=== PATIENT | male | born 1960 ===

== ENCOUNTER 2021-12-18 04:54 | Inpatient (IN) ==
[2021-12-18] MEDS ORDERED: niCARdipine HCL INJ 2.5 MG/ML 10 ML AMP ONE (04:59)
[2021-12-18] MEDS ORDERED: HEPARIN (PORCINE) 1000 UNIT/ML 10 ML (CATH LAB USE ONLY) ONE (04:59)
[2021-12-18] MEDS ORDERED: MIDAZOLAM HCL 1 MG/ML 2ML VIAL ONE (05:00)
[2021-12-18] MEDS ORDERED: NITROGLYCERIN/D5W 100MCG/ML 20ML SYR ONE (05:00)
[2021-12-18] MEDS ORDERED: fentaNYL citrate 100 MCG/2 ML VIAL ONE (05:00)
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
[2021-12-18] MEDS ORDERED: fentaNYL citrate 100 MCG/2 ML VIAL IV STA (05:02)
--- NOTE | 2021-12-18 05:18 | Pre Anesthesia Assessment ---
Date of Service December 18, 2021 Pre Sedation Assessment Vital Signs Temp Pulse Pulse Resp BP BP Pulse Ox 12/18/21 05:14 12/18/21 05:10 88 18 140/91 97 12/18/21 05:04 12/18/21 04:58 99 12/18/21 04:58 98.1 F 80 18 136/90 99 O2 Del Method 12/18/21 05:14 Room Air 12/18/21 05:10 12/18/21 05:04 Room Air 12/18/21 04:58 Room Air 12/18/21 04:58 Room Air Cardiovascular RRR, no murmur, no edema Respiratory normal respiratory effort, lungs clear to auscultation Pre-Sedation Airway Assessment Smoking Status: Current every day smoker Hx Sleep Apnea: No Hx Difficult Intubation: No Short, Thick Neck: No Oral Cavity: + WNL ASA: ASA4 Procedure Planning Contraindications for Sedation: none Current Medications Reviewed: Yes Notes The planned sedation has been discussed with the patient. Informed Consent was obtained. I have identified the patient, determined the appropriateness of sedation and have assessed the patient immediately prior to the procedure. All medicine(s) and interventions are by my order.
[2021-12-18] MEDS ORDERED: TICAGRELOR 90 MG TAB ONE (05:19)
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
[2021-12-18 05:22] LABS: Basophils # (auto) 0.09 K/uL (0-0.2); Basophils % (auto) 0.9 %; Eosinophils # (auto) 0.34 K/uL (0-0.50); Eosinophils % (auto) 3.3 %; Hematocrit (blood only) 41.9 % (40.1-51.0); Hemoglobin 13.9 g/dl (14.0-18.0); Immature Granulocytes # (auto) 0.04 K/uL (0.00-0.02); Immature Granulocytes % (auto) 0.4 %; Lymphocytes # (auto) 2.17 K/uL (1.2-3.4); Lymphocytes % (auto) 20.8 %; Mean Corpuscular Hemoglobin 30.2 pg (25.0-34.0); Mean Corpuscular Hgb Conc 33.2 g/dL (32.0-36.0); Mean Corpuscular Volume 90.9 fL (80.0-100.0); Mean Platelet Volume 9.1 fL (9.4-12.4); Monocytes # (auto) 0.98 K/uL (0.24-0.82); Monocytes % (auto) 9.4 %; Neutrophils # (auto) 6.83 K/uL (1.4-6.5); Neutrophils % (auto) 65.2 %; Platelet Count 329 K/uL (130-400); RDW Coefficient of Variation 12.9 % (11.5-14.5); RDW Standard Deviation 42.4 fL (36.4-46.3); Red Blood Count 4.61 M/uL (4.63-6.08); White Blood Count 10.45 K/ul (4.8-10.8)
[2021-12-18 05:34] LABS: INR 0.9 (0.9-1.1)
[2021-12-18 05:43] LABS: Albumin Globulin Ratio 1.4 (0.9-2); BUN Creatinine Ratio 22.9 (10-20); Bilirubin,Total 0.3 mg/dl (0.2-1.0); Calcium 8.7 mg/dl (8.5-10.1); Creatinine Clr Calc Pharmacy 99.3 ml/min; Est GFR (African American) 116.4 ml/min; Est GFR (Non-African American) 100.4 ml/min; Globulin 2.8 gm/dl (2.5-4.0); Potassium 3.8 mmol/L (3.5-5.1); Total Protein 6.8 gm/dl (6.0-8.3)
[2021-12-18] MEDS ORDERED: ICU PROTOCOL FOR HYPERGLYCEMIA PRN (06:30)
--- NOTE | 2021-12-18 06:30 | Post Anesthesia Assessment ---
Date of Service December 18, 2021 Post Sedation Assessment Vital Signs Temp Pulse Pulse Resp BP BP Pulse Ox 12/18/21 05:14 12/18/21 05:10 88 18 140/91 97 12/18/21 05:04 12/18/21 04:58 99 12/18/21 04:58 98.1 F 80 18 136/90 99 O2 Del Method 12/18/21 05:14 Room Air 12/18/21 05:10 12/18/21 05:04 Room Air 12/18/21 04:58 Room Air 12/18/21 04:58 Room Air Recovery Score Activity: Moves 4 extremities Respiration: Deep Breath/Cough Circulation: +/-20% PreAnes Value Consciousness: Fully Awake Oxygen Saturation: O2 needed for >90% Discharge Sedation Level of Care: Fast Track Phase II Post Sedation Plan On clinical assessment, the patient appears to have tolerated the sedation without complications. Patient is recovering as anticipated. Patient will continue to be monitored by nursing and may be discharged when sedation discharge criteria are met per below protocol. Upon Completions of procedure up to 15 minutes continue every 5 minute vital signs and the P.A.R. score; then discharge to a Phase I or Fast Track to Phase II per the following guidelines: * Discharge Patient to appropriate Phase II area if PAR is 8 or greater or retur n to pre- procedure baseline. The post - procedure orders will be as directed. * If PAR score is less than 8 or not return to pre-procedure baseline then patient will follow Phase I monitoring till PAR is reached for Phase II. The Phase I may be done in procedure room or may call to secure a Phase I area. * If naloxone or flumazenil are used for reversal, hold in Phase I for continued monitoring from when last reversal dose was given for a minimum of 60 minutes or longer pending the nurse and/or physician discretion of patient condition before discharge to Phase II. Please call the Sedation Physician to re-evaluate and complete post-note for discharge to Phase II area. Do NOT discharge from procedure sedation or Phase 1 until post- sedation evaluation note is complete by procedure /sedation MD Sedation Discharge Instructions to be given to the patient at discharge to home.
[2021-12-18] MEDS ORDERED: ACETAMINOPHEN 325 MG TAB PO PRN (06:33)
[2021-12-18] MEDS ORDERED: SODIUM CHLORIDE 0.9% 1000ML 1,000 ML IV SCH (06:45)
--- NOTE | 2021-12-18 06:46 | Cardiac Catheterization ---
[facility] Data: Fast Food Sales Assistant Cardiac Status Clinical evaluation leading to the procedure CAD Presenation: STEMI Anginal Classification: CCS IV Diagnostic Physicians Name: Jesus Zamarripa MD Closure Device Recommendations: PCI without planned CABG Cardiac Cath Procedure Full Procedure Date December 18, 2021 Pre-Procedure Diagnosis Pre-Procedure Diagnosis: STEMI AUC Score AUC Score: 9 Post-Procedure Diagnosis Post-Procedure Diagnosis: Severe CAD and Successful PCI Procedure(s) Performed Procedure(s) Performed: Coronary Angiography, Left Heart Cath and Drug Eluting Stent Social Problems Specialist Jesus Zamarripa MD Yarn Mercerizer Operator(s) [place] Estimated Blood Loss Estimated Blood Loss: 15 Medication(s) Medication(s): Fentanyl, Heparin, Lidocaine 1%, Nicardipine, Nitroglycerin and Versed Medication(s): Ticagrelor Summary of Findings Indication: STEMI/Heart Alert Access: 6 Fr right radial artery Catheters: Turn left 3.5 guide, pigtail Findings: LM -normal caliber, no significant disease LAD -medium caliber, calcified, 30 to 40% proximal disease. Mid segment angulated with 50 to 60% stenosis after D1. 40 to 50% latemid stenosis after D2. Distal vessel without significant disease and wraps around apex. Medium D2 without disease. Circumflex -medium caliber, gives off 1 large OM1. OM1 with 30% proximal/mid disease. RCA -dominant, large caliber, calcified, acute 100% mid occlusion upstream from prior stent. Faint [id number] collaterals to PDA/PLB. LVEDP -16 -- PCI -- Antithrombotic therapy: Heparin, ticagrelor Procedure: RCA cannulated with [place] left 3.5 guide Huc Ob 50 wire passed across lesion into distal vessel Due to calcification difficulty passing 2.5 balloon across stenosis With the aid of a GuideLiner able to predilate mid to distal vessel with 2.5 and 3.0 balloons After flow reestablished noticed to have a distal RCA stenosis/dissection. Distal RCA stented with 4.0 x 18 mm [place] extending back into mid segment in overlapping distal aspect of prior stent. Second KALEB (4.0 x 30 mm [place]) placed to mid RCA overlapping proximal aspect of old stent Stents post-dilated with 4.0 and 4.5 noncompliant balloons IC vasodilators administered for spasm Post procedure ASHLYN 3 flow, stents well expanded with minimal residual stenosis and no apparent cardiac complications. Arterial Closure: TR band Summary: 1. Inferolateral STEMI/100% mid RCA occlusion 2. Moderate non-culprit coronary artery disease -30% proximal, 60% mid LAD disease 30% OM1 3. Normal intracardiac filling pressure 4. Successful PCI of mid to distal RCA with 2 overlapping drug-eluting stents (4.0 x 30, 4.0 x 18 mm [place]; postdilated with 4.5 NC) extending across prior latemid RCA stent. Recommendations: Admit to ICU for continued monitoring Loaded with ticagrelor 180 mg in Fast Food Sales Assistant No aspirin with prior allergy. Continue extended ticagrelor/ADP antagonist indefinitely Trend troponins until peak, Check Echo Uptitrate beta-adolfo/ARB as BP allows High-dose statin Consult cardiac Rehab Hemodynamics Rest Ao:: 129/73/118 Final Ao: 113/71/90 LV: 110/16 Recommendations Recommendations: PCI without planned CABG Specimens Specimens: None Radiation Exposure (mGy) 2058 Contrast (mls) 60 Anesthesia Moderate 3048-3821 Procedural Complication(s) None Disposition ICU I attest to the content of the Intraoperative Record and any orders documented therein. Any exceptions are noted below. [facility] Card Cath Procedure Codes Cardiac Catheterization Procedure 1: Cardiovascular Cath Procedures: 96386 Coronaries and LHC (+/-LV) Moderate Sedation Procedure 1: Sedation/Anesthesia: 47354 Mod Sedation by the same physician;Init15 Min Child Age 5 & Up Procedure 2: Sedation/Anesthesia: 89229 Mod Sedation by the same physician; Ea [id number] Minutes Stenting Procedure 1: Cardiovascular Stent Procedures: 55780 Perc transluminal revascularization of acute sub/total occl, aMI PG Care Time/CCT Total # of Minutes Spent Total Time Spent with Patient: Total time spent is greater than 50% in coordination of care (as documented) at patient's floor/unit and/or counseling patient:
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
[2021-12-18] MEDS: LOSARTAN POTASSIUM 25 MG TAB PO SCH (08:03)
[2021-12-18] MEDS: PANTOprazole 40 MG TAB PO SCH (08:03)
[2021-12-18] MEDS: ROSUVASTATIN CALCIUM 20 MG TAB PO SCH (08:03)
[2021-12-18] MEDS: METOPROLOL TARTRATE 25 MG TAB PO SCH ×2 (08:03→20:24)
[2021-12-18 09:14] VITALS: TEMP 98.1
--- NOTE | 2021-12-18 10:19 | Billing Data ---
Date of Service December 18, 2021 Coding Level of Care Code 58020 Inpt Consult Level 3
--- NOTE | 2021-12-18 12:08 | XCELERA ---
[id number]
--- NOTE | 2021-12-18 17:48 | Electrocardiogram Report ---
Test Reason : Blood Pressure : / mmHG Vent. Rate : 075 BPM Atrial Rate : 075 BPM P-R Int : 180 ms QRS Dur : 084 ms QT Int : 378 ms P-R-T Axes : 042 070 098 degrees QTc Int : 422 ms Normal sinus rhythm with sinus arrhythmia ST elevation consider inferolateral injury or acute infarct ACUTE NV / STEMI Consider right ventricular involvement in acute inferior infarct Abnormal ECG No previous ECGs available Confirmed by Jesus Hicks ([id number]) on 12/18/2021 5:48:26 PM Referred By: REFERRED SELF Confirmed By:Cliff Hicks
--- NOTE | 2021-12-18 17:54 | Electrocardiogram Report ---
Test Reason : Blood Pressure : / mmHG Vent. Rate : 076 BPM Atrial Rate : 076 BPM P-R Int : 156 ms QRS Dur : 086 ms QT Int : 406 ms P-R-T Axes : 052 030 -10 degrees QTc Int : 456 ms Normal sinus rhythm Inferior infarct , possibly acute ACUTE NV / STEMI Consider right ventricular involvement in acute inferior infarct Abnormal ECG When compared with ECG of 18-DEC-2021 05:00, (unconfirmed) ST less elevated in Inferior leads ST no longer depressed in Anterolateral leads T wave inversion now evident in Inferior leads T wave inversion no longer evident in Anterolateral leads Confirmed by Jesus Hicks ([id number]) on 12/18/2021 5:53:54 PM Referred By: REFERRED SELF Confirmed By:Cliff Hicks
[2021-12-18] MEDS: TICAGRELOR 90 MG TAB PO SCH (20:24)
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
[2021-12-19 02:39] LABS: Basophils # (auto) 0.04 K/uL (0-0.2); Basophils % (auto) 0.3 %; Eosinophils % (auto) 1.7 %; Hematocrit (blood only) 36.9 % (40.1-51.0); Hemoglobin 12.3 g/dl (14.0-18.0); Immature Granulocytes # (auto) 0.03 K/uL (0.00-0.02); Immature Granulocytes % (auto) 0.3 %; Lymphocytes # (auto) 2.04 K/uL (1.2-3.4); Mean Corpuscular Hemoglobin 30.1 pg (25.0-34.0); Mean Corpuscular Hgb Conc 33.3 g/dL (32.0-36.0); Mean Corpuscular Volume 90.4 fL (80.0-100.0); Mean Platelet Volume 9.4 fL (9.4-12.4); Monocytes # (auto) 1.41 K/uL (0.24-0.82); Monocytes % (auto) 11.8 %; Neutrophils # (auto) 8.25 K/uL (1.4-6.5); Neutrophils % (auto) 68.9 %; Platelet Count 297 K/uL (130-400); RDW Coefficient of Variation 13.1 % (11.5-14.5); Red Blood Count 4.08 M/uL (4.63-6.08); White Blood Count 11.97 K/ul (4.8-10.8)
[2021-12-19 03:19] LABS: BUN Creatinine Ratio 22.1 (10-20); Calcium 8.5 mg/dl (8.5-10.1); Chol HDL Ratio 3.9 (0-5); Creatinine Clr Calc Pharmacy 80.8 ml/min; Est GFR (Non-African American) 92.3 ml/min; Potassium 3.7 mmol/L (3.5-5.1)
[2021-12-19 07:36] LABS: Estimated Average Glucose 117 mg/dl; Hemoglobin A1C 5.7 % (4.5-5.6)
[2021-12-19] MEDS: TICAGRELOR 90 MG TAB PO SCH ×2 (10:13→21:21)
[2021-12-19] MEDS: METOPROLOL TARTRATE 25 MG TAB PO SCH (10:14)
[2021-12-19] MEDS: ROSUVASTATIN CALCIUM 20 MG TAB PO SCH (10:14)
[2021-12-19] MEDS: PANTOprazole 40 MG TAB PO SCH (10:14)
[2021-12-19] MEDS: LOSARTAN POTASSIUM 25 MG TAB PO SCH (10:14)
--- NOTE | 2021-12-19 13:27 | Cardiology Progress Note ---
Date of Service December 19, 2021 Assessment & Plan (1) Coronary artery disease: Plan: Post primary PCI to occluded RCA with 2 KALEB 12/18/2021 Moderate residual nonculprit hbgdaok23% mid LAD, 30% OM1 2. Ischemic cardiomyopathyEF 40 to 45%, inferior/inferoseptal/inferolateral wall motion normality 3. Frequent ventricular ectopy 4. Hypertension 5. Dyslipidemiastatin induced myopathy 6. PADright popliteal occlusion with reconstitution of JILLIAN, prior attempted intervention vascular surgery 03/2020 7. Tobacco abuse 8. Aspirin allergy Chest pain-free, troponins peaked Hemodynamically stable No signs of heart failure on exam No access to complications Continues to have intermittent ventricular ectopy, nonsustained VT Recommend monitoring on telemetry 1 additional day in the setting of ventricular ectopy Increase metoprolol to 50 mg twice daily Continue single antiplatelet therapy with ticagrelor Continue home losartan Reports life limiting muscle/joint symptoms with multiple statins including rosuvastatinwe will switch to low-dose pravastatin, add Zetia. [facility] previously discussed PCSK9 [facility]. Recommend starting as an outpatient. Smoking cessation Assuming reduced ventricular ectopy overnight likely discharge tomorrow morning Follow-up with me in 2 weeks. Admission and Anticipated Discharge Date Admission Date: December 18, 2021 Subjective Feeling well today. Denies any recurrent chest pain since PCI yesterday. Denies shortness of breath. Reports muscle aches, cramping of his joints most notably in his hands with statin. Telemetry reviewedfrequent nonsustained VT, 1 40+ beat run overnight. Asymptomatic. Review of Systems Review of Systems: All systems reviewed & are unremarkable except as noted in HPI & below Physical Exam Physical Exam: General: Comfortable HEENT: Sclerae anicteric Lungs: Clear to auscultation bilaterally Cardiac: Regular rate and rhythm, no murmurs. Vascular: Right radial artery access site with no ecchymosis, hematoma. Distal pulse and sensation intact. Abdomen: Soft, nontender Extremities: Well perfused, no peripheral edema Neuro: Nonfocal Psych: Alert orient x3, normal affect and mood Results & Data ([facility]) Vital Signs (Past 12 Hours) Vital Signs Pulse Resp BP Pulse Ox 12/19/21 10:00 75 13 116/75 97 12/19/21 09:00 64 18 96 12/19/21 08:00 66 22 95 12/19/21 07:00 63 17 94 12/19/21 07:00 113/70 12/19/21 07:29 61 PG Care Time/CCT Total # of Minutes Spent Total Time Spent with Patient: Total time spent is greater than 50% in coordination of care (as documented) at patient's floor/unit and/or counseling patient: Coding Level of Care Code 47068 Subseq Hosp Care Lvl 3 Diagnoses Coronary artery disease I25.10
[2021-12-19] MEDS ORDERED: METOPROLOL TARTRATE 25 MG TAB PO ONE (13:29)
--- NOTE | 2021-12-19 16:59 | Hospitalist Progress Note ---
Date of Service December 19, 2021 Assessment & Plan (1) Acute UT, inferolateral wall: Plan: Status post cath and stenting, doing well (2) Coronary artery disease: Plan: Med management, secondary risk reduction. Lifestyle discussed in detail. Smoke cessation encouraged yet again. He is doing good in this regard. Discussed statin, discussed the skepticism about statins causing muscle aches, but also noted that if it truly was the statin causing this degree of aches, it would not be unreasonable to stop and try a different line of medications. That said, given that he is continuing to take the rosuvastatin even to this day, and he is fresh from a STEMI, it would probably make more sense for him to try cessation and follow side effects in a few months. If the aches get better, then a PCSK9 would make sense, if the aches of the same, then it would be clear that the statin was not culprit. (3) HTN (hypertension): Plan: Blood pressure remains acceptable given the situation (4) Hyperlipidemia: Plan: High intensity statinsee above (5) Tobacco abuse: Plan: Counseled extensively on cessation (6) DVT prophylaxis: Plan: Has had extensive heparin. Currently ambulation (7) Discharge planning issues: Plan: Monitor overnight, if no significant arrhythmias or new symptoms, hopefully home tomorrow. Admission and Anticipated Discharge Date Admission Date: December 18, 2021 Subjective Generally feeling well. No chest pain no shortness of breath. Looking forward to going home. In discussion of statinhe notes that he thinks rosuvastatin is causing shoulder and arm painbut at the same time notes he is continuing to take it. He notes before whenever he was off at the shoulder and arm pain was better. That said, he also seems to pay deference to the fact that he works a very physical job and it might be pain from that. Review of Systems Review of Systems: All systems reviewed & are unremarkable except as noted in HPI & below Physical Exam Physical Exam: In general he is awake and alert pleasant no distress. HEENT normocephalic atraumatic mucous membranes moist. Breathing unlabored no accessory muscle use good effort. Skin shows no rashes no pallor or icterus. Neuro without focal deficits. Left hand some joint hypertrophy and stiffness. Results & Data Results & Data ([facility]) Vital Signs (Past 12 Hours) Vital Signs Pulse Resp BP Pulse Ox 12/19/21 16:00 64 21 95 12/19/21 16:00 113/70 12/19/21 15:00 63 21 97 12/19/21 15:00 114/73 12/19/21 14:00 65 22 96 12/19/21 14:00 107/64 12/19/21 13:00 23 12/19/21 13:00 104/67 12/19/21 12:00 61 17 95 12/19/21 11:00 61 14 95 12/19/21 11:00 112/77 12/19/21 16:00 66 12/19/21 10:00 75 13 116/75 97 12/19/21 09:00 64 18 96 12/19/21 08:00 66 22 95 12/19/21 07:00 63 17 94 12/19/21 07:00 113/70 12/19/21 07:29 61 PG Care Time/CCT Total # of Minutes Spent Total Time Spent with Patient: Total time spent is greater than 50% in coordination of care (as documented) at patient's floor/unit and/or counseling patient: Coding Level of Care Code 35809 Subseq Hosp Care Lvl 3 Diagnoses Acute UT, inferolateral wall I21.19 Coronary artery disease I25.10 HTN (hypertension) I10 Hyperlipidemia E78.5 Tobacco abuse Z72.0 DVT prophylaxis Z29.9 Discharge planning issues Z02.9
[2021-12-19] MEDS: METOPROLOL TARTRATE 50 MG TAB PO SCH (21:21)
[2021-12-20 05:55] LABS: Basophils # (auto) 0.05 K/uL (0-0.2); Basophils % (auto) 0.5 %; Eosinophils # (auto) 0.22 K/uL (0-0.50); Hematocrit (blood only) 39.3 % (40.1-51.0); Hemoglobin 13.2 g/dl (14.0-18.0); Immature Granulocytes # (auto) 0.03 K/uL (0.00-0.02); Immature Granulocytes % (auto) 0.3 %; Lymphocytes # (auto) 2.17 K/uL (1.2-3.4); Mean Corpuscular Hemoglobin 30.3 pg (25.0-34.0); Mean Corpuscular Hgb Conc 33.6 g/dL (32.0-36.0); Mean Corpuscular Volume 90.1 fL (80.0-100.0); Mean Platelet Volume 9.8 fL (9.4-12.4); Monocytes # (auto) 1.33 K/uL (0.24-0.82); Monocytes % (auto) 12.3 %; Neutrophils # (auto) 7.05 K/uL (1.4-6.5); Neutrophils % (auto) 64.9 %; Platelet Count 292 K/uL (130-400); RDW Standard Deviation 42.9 fL (36.4-46.3); Red Blood Count 4.36 M/uL (4.63-6.08); White Blood Count 10.85 K/ul (4.8-10.8)
[2021-12-20 06:21] LABS: Calcium 8.9 mg/dl (8.5-10.1); Creatinine Clr Calc Pharmacy 92.7 ml/min; Est GFR (African American) 113.2 ml/min; Est GFR (Non-African American) 97.6 ml/min
[2021-12-20] MEDS: TICAGRELOR 90 MG TAB PO SCH (07:45)
[2021-12-20] MEDS: METOPROLOL TARTRATE 50 MG TAB PO SCH (07:46)
[2021-12-20] MEDS: PANTOprazole 40 MG TAB PO SCH (07:46)
[2021-12-20] MEDS: LOSARTAN POTASSIUM 25 MG TAB PO SCH (07:46)
[2021-12-20 08:58] VITALS: O2SAT 95
[2021-12-20] MEDS ORDERED: EZETIMIBE 10 MG TABLET PO SCH (09:00)
[2021-12-20 11:16] VITALS: BP 124/78; PULSE 86
--- NOTE | 2021-12-20 11:53 | Cardiology Progress Note ---
Date of Service December 20, 2021 Assessment & Plan (1) Coronary artery disease: Plan: Post primary PCI to occluded RCA with 2 KALEB 12/18/2021 Moderate residual nonculprit [id number]% mid LAD, 30% OM1 2. Ischemic cardiomyopathyEF 40 to 45%, inferior/inferoseptal/inferolateral wall motion normality 3. Frequent ventricular ectopy 4. Hypertension 5. Dyslipidemiastatin induced myopathy 6. PADright popliteal occlusion with reconstitution of JILLIAN, prior attempted intervention vascular surgery 03/2020 7. Tobacco abuse 8. Aspirin allergy Chest pain-free, troponins peaked Hemodynamically stable No signs of heart failure on exam No access to complications No additional significant ventricular ectopy overnight. Ok for discharge today. Home on Brilinta alone and current meds. PCSK9 as an outpatient with AL Smoking cessation Follow-up with me in 2 weeks. Admission and Anticipated Discharge Date Admission Date: December 18, 2021 Subjective feeling well. no chest pain. ready to go home. tele reviewed -- no events. Review of Systems Review of Systems: All systems reviewed & are unremarkable except as noted in HPI & below Physical Exam Physical Exam: General: Comfortable HEENT: Sclerae anicteric Lungs: Clear to auscultation bilaterally Cardiac: Regular rate and rhythm, no murmurs. Vascular: Right radial artery access site with no ecchymosis, hematoma. Distal pulse and sensation intact. Abdomen: Soft, nontender Extremities: Well perfused, no peripheral edema Neuro: Nonfocal Psych: Alert orient x3, normal affect and mood Results & Data ([facility]) Vital Signs (Past 12 Hours) Vital Signs Temp Pulse Pulse Resp BP BP Pulse Ox 12/20/21 11:13 98.1 F 86 17 124/78 95 12/20/21 08:50 65 17 95 12/20/21 08:40 65 20 95 12/20/21 08:30 70 22 95 12/20/21 08:20 63 20 95 12/20/21 08:10 65 16 96 12/20/21 08:00 70 19 93 12/20/21 07:50 70 22 93 12/20/21 07:45 71 19 94 12/20/21 07:45 108/71 12/20/21 07:40 70 22 95 12/20/21 07:30 72 25 H 93 12/20/21 07:20 72 19 93 12/20/21 07:10 65 16 94 12/20/21 07:00 65 14 94 12/20/21 07:00 117/78 12/20/21 06:50 62 21 93 12/20/21 06:40 58 L 17 94 12/20/21 06:30 59 L 19 94 12/20/21 06:20 69 17 96 12/20/21 06:10 60 17 92 12/20/21 06:00 62 19 95 12/20/21 06:00 117/73 12/20/21 05:50 60 20 93 12/20/21 05:40 61 21 90 12/20/21 05:30 62 18 94 12/20/21 05:20 69 16 97 12/20/21 05:10 62 27 H 94 12/20/21 08:00 61 12/20/21 05:00 64 16 93 12/20/21 05:00 107/73 12/20/21 04:00 59 L 17 95 12/20/21 04:00 111/71 12/20/21 03:00 59 L 15 94 12/20/21 03:00 112/70 12/20/21 02:00 57 L 17 94 12/20/21 02:00 103/70 12/20/21 01:00 65 15 94 12/20/21 01:00 114/66 12/20/21 00:00 59 L 17 93 12/20/21 00:00 100/63 PG Care Time/CCT Total # of Minutes Spent Total Time Spent with Patient: Total time spent is greater than 50% in coordination of care (as documented) at patient's floor/unit and/or counseling patient: Coding Level of Care Code 38642 Subseq Hosp Care Lvl 3 Diagnoses Coronary artery disease I25.10
--- NOTE | 2021-12-20 15:44 | Discharge Summary ---
Date of Service December 20, 2021 Admission HPI Per Admitting Provider Patient presented with chest painfound to have inferior STEMItaken promptly to cath and PCI. By the time I see him he is feeling good. No further chest pain no shortness of breath. 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 He does still smoke but is willing to at least consider quitting, knows that he should. Eating habits sound fairly typical for bessemer PAprobably a little devoid in fruits and vegetables a little high in saturated fats and simple carbs, but certainly nothing outlandish. Principal Diagnosis STEMI Discharge Exam In general he is awake and alert pleasant no distress. HEENT normocephalic atraumatic mucous membranes moist. Breathing unlabored no accessory muscle use good effort. Skin shows no rashes no pallor or icterus. Neuro without focal deficits. Discharge Data Allergies Allergy/AdvReac Type Severity Reaction Status Date / Time aspirin Allergy Severe Swelling Verified 04/03/21 09:29 of Lip/Tongue/Throat Bee Stings Allergy Severe Anaphylaxis Uncoded 04/03/21 09:29 Consultations 12/18/21 05:04 ED Decision to Admit Stat 12/18/21 06:30 Consult Workday Manager Routine Procedures Performed Operation Date: 12/18/21 05:10 Actual Procedures p Aspiration/PCI w/KALEB for Stemi - Marcelo Zamarripa MD Ordered Studies 12/18/21 05:06 CL Cath Imgs for PACS use only Stat Hospital Course (1) Acute [place], inferolateral wall: Status post cath and stenting, doing well, stable for home. (2) Coronary artery disease: Med management, secondary risk reduction. Lifestyle discussed in detail. Smoke cessation encouraged yet again. He is doing good in this regard. Discussed statin, discussed the skepticism about statins causing muscle aches, but also noted that if it truly was the statin causing this degree of aches, it would not be unreasonable to stop and try a different line of medications. By cardiology recommendations, changing his rosuvastatin to pravastatin. Discussed with patient to follow his muscle aches nowif they get better, then it would be clear that the rosuvastatin was culprit, but given his physical job and the high probability that he has muscle aches simply from the physical nature of his workif the aches are the same on the pravastatin as they were on the rosuvastatin, it likely was not the rosuvastatin at culprit, and it could be resumed. This of course leaves open the question of whether or not a trial off of all statins would be necessary if the aches do not get better. If the aches do get better off of statin, then a PCSK9 would make sense, and again, if the aches remain the same, then it would be clear that the statin was not culprit. (3) HTN (hypertension): Blood pressure remains acceptable given the situation (4) Hyperlipidemia: See above under coronary artery disease (5) Tobacco abuse: Counseled extensively on cessation, doing well thus far (6) DVT prophylaxis: Has had extensive heparin. Currently ambulation (7) Discharge planning issues: Stable for home, outpatient PCP and cardiology follow-up.. Total Time Total Time Spent Total Time Spent (In Minutes): <30 Discharge Plan Discharge Items Patient Disposition: Home - Self-Care Reason For Visit: STEMI Discharge Diagnosis: Heart attack Activity: Resume your previous activity Activity Comment: Take it easy until you are seen by cardiology and follow-up Non-emergency contact: Primary Care Provider and Weft Straightener Call non-emergency contact if: you have any medication questions and your symptoms worsen Follow-up/Referrals: PCP,NO [Primary Care Provider] - Diet: Heart Healthy Addtl Attending Provider Instructions: Heart attack -You had a fairly significant heart attack caused by blockage of your right coronary arteryfortunately this was able to be stented open to mitigate some of the damage. You do have some other blockages that are not nearly as significant, but that means it is critically important to work every angle (medications, diet/exercise, quitting smoking) to keep the situation totally stable and prevent the next heart attack -As far as lifestyle, moving towards as much of a Mediterranean diet as you can (heavy in fruits and vegetables, lean sources of protein such as chicken without the skin, pork, fish, and low in simple/starchy/bradycardia carbohydrates as well as saturated fats) will be very helpful. Once cardiology gives you the "greenlight" getting back to being as active as possible is very helpfulwith an ideal goal of 20 to 30 minutes of exercise a day that has your heart rate up. Lastly, quitting smoking is critically important. Remember you are now several days cigarette free and doing well. Like we discussed, everything else we are doing (medicines, diet, exercise) will be about as effective as trying to dry off while you are still in the swimming pool if you keep smoking. -As far as medications: We have started metoprolol which is a "beta-adolfo" medicationthink of this as a "cardiac muscle relaxant"it helps slow your heart rate down some and allow your heart muscle to relaxmeaning that it will need less demand of blood flow. Typically people tolerate this medicine quite well, some do feel fatigue/lightheaded/dizzy. 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 Either way it is unlikely, and most of the time even when it does happen if you give it a week or 2 it will improve. As far as the statin goeswe emphasized those so much because there are good outcomes in the studies showing that people with heart disease on a statin are significantly less likely to have another heart attack. That said, if you truly have almost disabling muscle and joint symptoms related to the rosuvastatin, that would not be acceptable. Dr. Zamarripa has recommended that we give a trial of pravastatin and Zetia. With this switch, if you notice your joint/muscle pain getting better over the next months (pay attention especially at the end of December and early January as the rosuvastatin would be wearing off if it was culprit), then we would know the rosuvastatin was a culpritand we would have you continue on the pravastatin and Zetia but also have your primary team continue to work on the injectable cholesterol medicinesbecause they have a better rate of preventing future heart attacks than a combination like pravastatin and Zetia would. If you notice no change in your muscle aches, then it is most likely the rosuvastatin was not culprit, and since it is a better medicine at preventing heart attacks than pravastatinI would recommend going back to it. "Getting into the weeds" you could entertain the idea that any statin is causing aches, and for the month of January be off of even the pravastatin, before deciding for sure whether or not the statin causes aches. We have you on Brilinta as an "antiplatelet" medicinewhen someone has a heart attack, the plaque in their coronary artery splits open. Our blood reacts similarly to if we cut ourselves: It tries to make a clot. Medications like Brilinta make it less likely you are going to form a clot again midstream in you r coronary artery. It is definitely a critical medicationwhen someone has a stent in, until the stent has had a chance to heal over (sometimes as much is a year) there is a higher risk of forming a clot in the stent if you miss any doses. Antiplatelet medicines like Brilinta do cause easier bruising and bleedingalthough it is very rare that is anything serious, far more often it is "just annoying or frustrating" We have continued you on your home dose of losartanmedications like losartan are very helpful at taking strain off of your heart, so in the long run it is actually very beneficial. While it is not horribly weak, your heart muscle is a little bit weaker than it was before. This is best measured by your "ejection fraction" (the percentage of blood that your heart squeezes outnormal is about 60%)your ejection fraction is about 40-45%. Likely you will adapt to this fairly quickly, people do often feel more fatigue and shortness of breathespecially with exertionwhen the heart muscle is a bit weaker. Sometimes these weaknesses do improve some over time. What is probably most critical moving forward is that you will be more susceptible (likely not fragile, but more susceptible) to fluid retention. Most of the time this directly ties to the sodium in her diet. When our kidney see a little bit of sodium, they hold onto a little bit of water. When our kidney see a lot of sodium they hold onto a ton of water. Because your heart is a little bit weaker, if you hold onto a ton of water it can flooded your lungs, creating shortness of breath. To that end, start to look at food labelsand overall try to stay less than 2000 mg of sodium in a day. Fortunately, right now, it does not look like you would need a "water pill" (diuretic) We have also prescribed nitroglycerinhopefully you will never need it, but if you feel chest pain like you did when you were having a heart attack, stop what you are doing and rest. If the chest pain does not go away within 5 minutes, put a nitroglycerin under your tongue. After the first nitro if the pain is not gone away in 5 minutes from that, take a second nitro. Once again in 5 minutes (10 minutes after the first nitroglycerin) if you are still having chest pain that has not resolvedtake the third nitro and proceed immediately to the hospital. (Call 911) Take it fairly easy for the next few weeks. Dr. Zamarripa would like to see you in about 2 weeks. Depending on how you are doing then, he will hopefully be able to give you the "greenlight" to start increasing activity, start cardiac rehab, etc. Pending Studies at Discharge: No Stand-Alone Forms: My [facility], Smoking Cessation Medications and DC Order Prescriptions: New pravastatin 10 mg Tablet 10 mg PO DAILY@1700 Qty: 30 0RF metoprolol tartrate 50 mg Tablet 50 mg PO BID Qty: 60 0RF ezetimibe 10 mg Tablet 10 mg PO QAM Qty: 30 0RF Brilinta 90 mg Tablet 90 mg PO BID Qty: 60 0RF nitroglycerin 0.4 mg tablet, sublingual 0.4 mg sublingual Q5M PRN (Reason: chest pain) Qty: 30 0RF Continued oxymetazoline [12 Hour Nasal Relief Allen] 0.05 % spray,non-aerosol 2 spray intranasal DAILY artifi.tears(hypromellose)(PF) 0.3 % drops 1 drp ophthalmic (eye) DAILY PRN losartan 25 mg Tablet 25 mg PO DAILY multivitamin Capsule 1 cap PO DAILY cholecalciferol (vitamin D3) [Vitamin D3] 10 mcg (400 unit) capsule 2,000 unit PO DAILY Discontinued rosuvastatin 10 mg tablet 5 mg PO DAILY Discharge Orders: Discharge Order (Routine); Ordered 12/20/21 Ordered By: Marcelo Zamarripa Admission Data Admit Date/Time: 12/18/21 06:30 Attending Provider: Jj Pablo Admit Provider: Marcelo Zamarripa Primary Care Provider: PCP,NO Other Providers: [facility] ; Uzair Cruz ; [facility] Other Interventions: Discharge Summary Assessment (RN) Last Done: 12/20/21 11:13 Coding Level of Care Code D/C DAY MANAGEMENT <30 MINS Diagnoses Acute [place], inferolateral wall I21.19 Coronary artery disease I25.10 HTN (hypertension) I10 Hyperlipidemia E78.5 Tobacco abuse Z72.0 DVT prophylaxis Z29.9 Discharge planning issues Z02.9
[2021-12-20] MEDS ORDERED: PRAVASTATIN SOD 10 MG TAB PO SCH (17:00)
== END 2021-12-20 12:20 | disposition home or self-care (01) | DRG 247 ==
LOC: ED 04:54 → CC 05:14 → ED 05:14 → 1E 06:30 → SUATTDRO 06:30